=== PATIENT | female | born 1965 | race American Indian/Alaskan Native ===

== ENCOUNTER 2019-02-03 10:00 | Day surgery (SDC) | payer MEDICARE, MEDICAID ==
[~2019-02-03 10:00] MED LIST: ASPI-1264 PO; ATOR20TA66 PO; HCTZ25T PO; METF500T PO; [UNRECOGNIZED DRUG - CODE] PO
[2019-02-03 11:25] LABS: BASOPHILS % (AUTO) 0.3 % (0-1); EOSINOPHILS # (AUTO) 0.3 X10'3 (0-0.9); EOSINOPHILS % (AUTO) 4.1 % (0-6); HEMATOCRIT 45.7 % (35.0-45.0); HEMOGLOBIN 15.1 g/dl (12.0-16.0); LYMPHOCYTES # (AUTO) 1.5 X10'3 (1.1-4.8); LYMPHOCYTES % (AUTO) 19.7 % (21-51); MEAN CORPUSCULAR HEMOGLOBIN 28.4 PG (27.0-31.0); MEAN CORPUSCULAR HGB CONC 32.9 g/dL (33.0-36.5); MEAN CORPUSCULAR VOLUME 86.1 FL (78-98); MEAN PLATELET VOLUME 9.4 FL (7.4-10.4); MONOCYTES # (AUTO) 0.5 X10'3 (0-0.9); NEUTROPHILS # (AUTO) 5.3 X10'3 (1.8-7.7); NEUTROPHILS % (AUTO) 68.9 % (42-75); PLATELET COUNT 239 X10'3 (140-440); RED BLOOD COUNT 5.31 X10'6 (4.20-5.60); RED CELL DISTRIBUTION WIDTH 13.2 % (11.5-14.5); WHITE BLOOD COUNT 7.7 X10'3 (4.5-11.0)
[2019-02-03 11:42] LABS: HEMOGLOBIN A1C 10.5 % (4.5-6.2)
[2019-02-03] MEDS ORDERED: ALB0.5UD IH (11:44)
[2019-02-03] MEDS ORDERED: ASPI-1265 PO (11:44)
[2019-02-03] MEDS ORDERED: CANN100S (11:44)
[2019-02-03] MEDS ORDERED: ALBU18HF2 INH (11:44)
[2019-02-03] MEDS ORDERED: SITA1TBM4 PO (11:44)
--- NOTE | 2019-02-03 11:45 | NUR ---
Patient ambulated with rolling walker from [facility] and was admitted to outpatient wound care for physician visit with Mack Grijalva MD. Wound cleansed. New patient assessment completed with review of patient's medical history and current medications. 1036 - blood glucose 448. When asked by RN, patient states she "feels fine" and is in no sign or symptom of distress. Labs ordered. 1055 - Dr. Grijalva at bedside accompanied by RN. Wound assessed, time out performed by MD/RN. Wound debrided as detailed in the physician progress/procedure note. Plan of care discussed with patient. Dressings placed per MD orders. Patient instructed on the signs and symptoms of infection and to call the [facility] if any occur or to go to the ED if we are closed: Increased pain in wound Increase in drainage from the wound Redness in the skin surrounding the wound Bleeding from the wound Temperature of 101 or greater Patient instructed that the weight of their body puts a large amount of pressure on their wounds. This pressure keeps the new tissue from growing and inhibits new blood vessels from forming. Explained that, if they continue to bear weight on a body part that has a wound, the time it takes to heal the wound increases, the wound may get worse or the wound may not heal at all. Patient verbalized understanding of all discharge instructions and plan of care and ambulated with rolling walker out to [facility] in stable condition with no sign or symptom of distress at time of discharge.
[2019-02-03 12:22] LABS: ALANINE AMINOTRANSFERASE 23 U/L (12-78); ALBUMIN 3.3 G/DL (3.4-5.0); ALBUMIN/GLOBULIN RATIO 0.8 (1.1-1.5); ALKALINE PHOSPHATASE 89 IU/L (46-116); ANION GAP 10 (8-16); ASPARTATE AMINO TRANSFERASE 14 U/L (10-37); BILIRUBIN,TOTAL 0.3 MG/DL (0.1-1.0); BLOOD UREA NITROGEN 17 MG/DL (7-18); BUN/CREATININE RATIO 18.5 (6.6-38.0); CALCIUM 9.3 MG/DL (8.5-10.1); CHLORIDE 99 MMOL/L (99-107); CREATININE 0.92 MG/DL (0.40-0.90); GLUCOSE 401 MG/DL (70-104); POTASSIUM 4.7 MMOL/L (3.5-5.1); SODIUM 135 MMOL/L (135-145); TOTAL CARBON DIOXIDE 25.9 MMOL/L (24-32); TOTAL PROTEIN 7.4 G/DL (6.4-8.2); eGFR 64 ML/MIN
== END 2019-02-03 11:48 | disposition home or self-care (01) ==
LOC: WOUND CARE 10:00
PROVIDERS: ATTEND Surgery
DX: E11.621 Type 2 diabetes mellitus with foot ulcer (principal); L97.521 Non-pressure chronic ulcer of other part of left foot limited to breakdown of skin; E11.40 Type 2 diabetes mellitus with diabetic neuropathy, unspecified; E11.65 Type 2 diabetes mellitus with hyperglycemia; I10 Essential (primary) hypertension; G89.29 Other chronic pain; E78.00 Pure hypercholesterolemia, unspecified; Z86.73 Personal history of transient ischemic attack (TIA), and cerebral infarction without residual deficits
CPT/HCPCS: 11042; 36415; 36416; 80053; 82948; 83036; 84134; 85025; 85651; 87070; 87075; 87102; A6209; 87077; 87186; A6021; A6206; A6446

== ENCOUNTER 2019-02-07 09:20 | Inpatient (IN) | payer MEDICARE, MEDICAID | END 2019-02-13 15:57 | disposition home or self-care (01) | LOC: ORTHO 4S 02-13 04:39 → ER 09:20 → ED HOLD 13:19 → ORTHO 4S 17:35 → ICU 2S 22:15 | PROC: 0HBNXZZ Excision of Left Foot Skin, External Approach (ICD-10-PCS; principal; 2019-02-07 19:50) | PROC: 0JBR0ZZ Excision of Left Foot Subcutaneous Tissue and Fascia, Open Approach (ICD-10-PCS; 2019-02-07 19:50) | PROC: 0JBM0ZZ Excision of Left Upper Leg Subcutaneous Tissue and Fascia, Open Approach (ICD-10-PCS; 2019-02-07 19:50) | PROC: 0JBP0ZZ Excision of Left Lower Leg Subcutaneous Tissue and Fascia, Open Approach (ICD-10-PCS; 2019-02-07 19:50) | PROC: 0KBW0ZZ Excision of Left Foot Muscle, Open Approach (ICD-10-PCS; 2019-02-07 19:50) | PROC: 0KBR0ZZ Excision of Left Upper Leg Muscle, Open Approach (ICD-10-PCS; 2019-02-07 19:50) | PROC: 0KBT0ZZ Excision of Left Lower Leg Muscle, Open Approach (ICD-10-PCS; 2019-02-07 19:50) | PROC: 0HBJXZZ Excision of Left Upper Leg Skin, External Approach (ICD-10-PCS; 2019-02-07 19:50) | PROC: 0HBLXZZ Excision of Left Lower Leg Skin, External Approach (ICD-10-PCS; 2019-02-07 19:50) | PROC: 0Y9 Anatomical Regions, Lower Extremities, Drainage (ICD-10-PCS; 2019-02-07 19:50) | PROC: 0Y6D0Z2 Detachment at Left Upper Leg, Mid, Open Approach (ICD-10-PCS; 2019-02-07 19:50) | DX: M72.6 Necrotizing fasciitis (principal); A48.0 Gas gangrene; L97.429 Non-pressure chronic ulcer of left heel and midfoot with unspecified severity; L03.116 Cellulitis of left lower limb; E11.621 Type 2 diabetes mellitus with foot ulcer; E11.65 Type 2 diabetes mellitus with hyperglycemia ==

== ENCOUNTER 2019-09-05 10:21 | Emergency (ER) | payer MEDICARE, MEDICAID ==
[~2019-09-05] VITALS: Ht 162.6 cm; Wt 109.1 kg
[~2019-09-05 10:21] MED LIST changes: -ASPI-1264 PO; -ATOR20TA66 PO; +CANN100S; -HCTZ25T PO; -METF500T PO; +NO HOME MEDS; -[UNRECOGNIZED DRUG - CODE] PO
--- NOTE | 2019-09-05 11:03 | NUR ---
Ravi MASSEY at bedside.
[2019-09-05] MEDS ORDERED: Silvasorb gel 45gm tube TP STA (11:15)
[2019-09-05] MEDS ORDERED: CEPH-572 PO (11:18)
[2019-09-05] MEDS ORDERED: ibuprofen tablet 400 MG TABLET PO ONE (12:00)
--- NOTE | 2019-09-05 12:06 | NUR ---
BP 206/116mmhg, pulse 83-Ravi MASSEY made aware about bp,no new roder.
[2019-09-05 12:33] VITALS: BP 197/108
== END 2019-09-05 12:48 | disposition home or self-care (01) ==
LOC: ER 10:22
DX: L08.89 Other specified local infections of the skin and subcutaneous tissue (principal); R60.0 Localized edema; E11.9 Type 2 diabetes mellitus without complications; I10 Essential (primary) hypertension; Z89.612 Acquired absence of left leg above knee; Z86.73 Personal history of transient ischemic attack (TIA), and cerebral infarction without residual deficits; Z98.890 Other specified postprocedural states; Z88.1 Allergy status to other antibiotic agents; Z88.0 Allergy status to penicillin
CPT/HCPCS: 99283

== ENCOUNTER 2020-06-01 17:52 | Emergency (ER) | payer MEDICARE, MEDICAID ==
[~2020-06-01] VITALS: Ht 162.6 cm; Wt 118.2 kg
[2020-06-01] MEDS ORDERED: BACI1PAC7 TOP (18:16)
[2020-06-01 18:54] VITALS: BP 128/78
== END 2020-06-01 18:56 | disposition home or self-care (01) ==
LOC: ER 17:53
DX: T14.8XXA Other injury of unspecified body region, initial encounter (principal); I10 Essential (primary) hypertension; E11.9 Type 2 diabetes mellitus without complications; Z86.19 Personal history of other infectious and parasitic diseases; Z98.890 Other specified postprocedural states; Z88.2 Allergy status to sulfonamides; Z79.899 Other long term (current) drug therapy; W05.0XXA Fall from non-moving wheelchair, initial encounter; Y93.89 Activity, other specified; Y92.89 Other specified places as the place of occurrence of the external cause; Y99.8 Other external cause status
CPT/HCPCS: 99284